=== PATIENT | female | born 1965 | race Caucasian/White ===

== ENCOUNTER 2018-01-31 22:57 | Emergency (ER) | payer OTHER ==
[~2018-01-31] VITALS: Ht 162.6 cm; Wt 82.0 kg
[2018-01-31] MEDS ORDERED: LORazepam 2 MG/ML, 1ML ONE ×2 (23:10→23:58)
[2018-01-31] MEDS: LORazepam 2 MG/ML, 1ML IVPush PRN (23:23)
[2018-01-31] MEDS ORDERED: PLEASE ENTER ALLERGIES MC SCH (23:30)
[2018-02-01] MEDS: LORazepam 2 MG/ML, 1ML IVPush PRN (00:04)
[2018-02-01] MEDS ORDERED: HYDROcodone/APAP 5/325 TABLET ONE (02:41)
[2018-02-01 02:47] VITALS: BP 147/72
[2018-02-01] MEDS ORDERED: HYDROcodone/APAP 5/325 TABLET PO ONE (03:00)
== END 2018-02-01 02:51 | disposition home or self-care (01) ==
LOC: ED 23:59
DX: F43.23 Adjustment disorder with mixed anxiety and depressed mood (principal); Z86.73 Personal history of transient ischemic attack (TIA), and cerebral infarction without residual deficits
CPT/HCPCS: 96374; 96376; 99284; J2060